=== PATIENT | female | born 1980 | race Caucasian/White ===

== ENCOUNTER → 2020-05-12 12:10 | Outpatient (CLI) | payer OTHER, SELFPAY ==
[2020-05-17 13:52] LABS: HPV Reflexed? NOT INDICATED
== END ==
PROVIDERS: PCP Family Medicine; Referring Provider Family Medicine; Visit Provider Family Medicine
DX: Z12.4 Encounter for screening for malignant neoplasm of cervix (principal)
CPT/HCPCS: 88175; G0145

== ENCOUNTER → 2020-05-26 07:45 | Outpatient (CLI) | payer OTHER, SELFPAY ==
--- NOTE | 2020-05-26 07:47 | BI_ITS ---
MAMMOGRAPHY - BILATERAL SCREENING 3-D TOMOSYNTHESIS REASON FOR EXAM: Female, 39 years old. Annual screening mammogram. PERTINENT HISTORY: No significant family history. TECHNIQUE: 2-D mammograms and 3-D Tomosynthesis of the breast (s) were performed. CAD was performed. COMPARISON: None. Baseline examination. FINDINGS: The breast composition is almost entirely fat. Scattered benign calcifications are seen. No dense spiculated masses or suspicious microcalcifications are identified. No architectural distortion is identified. There is no skin thickening or retraction. There has been no significant change since the prior study. BI/SCREEN MAMM (CAD) W/CHANTE BILAT IMPRESSION: No mammographic signs of malignancy. Routine yearly mammograms recommended. ASSESSMENT CATEGORY: BIRADS Category 2: Benign. A letter regarding these results will be sent to the patient by the facility within 30 days. FOLLOW UP RECOMMENDATION: Yearly follow up mammogram recommended. (A) Approximately 10% of breast cancers are not detected by mammography. A normal mammogram should not delay biopsy of a clinically suspicious abnormality. Electronically Signed: Donal Patrick MD at 15:43 EDT , Service support ,
== END ==
PROVIDERS: PCP Family Medicine; Referring Provider Family Medicine; Visit Provider Family Medicine
DX: Z12.31 Encounter for screening mammogram for malignant neoplasm of breast (principal)
CPT/HCPCS: 77063; 77067

== ENCOUNTER 2020-06-07 13:12 | Emergency (ER) | payer OTHER, SELFPAY ==
[2020-06-07 13:13] VITALS: BP 148/96; PULSE 88; RESP 16; TEMP 36.8; O2SAT 100; BMI 43.5
--- NOTE | 2020-06-07 14:22 | RAD_ITS ---
STUDY: X-RAY - LEFT KNEE REASON FOR EXAM: Female, 39 years old. pt. fell, pain TECHNIQUE: 4 view(s) of the knee. COMPARISON: None. FINDINGS: Normal visualized distal femur. Normal visualized proximal tibia and fibula. Normal proximal tibiofibular articulation. Normal medial femorotibial compartment. Normal lateral femorotibial compartment. Normal patellofemoral articulation. Tiny degenerative spur along the anterior superior aspect of the patella. The soft tissue structures are unremarkable. RAD/Knee 4 or More Views IMPRESSION: Normal x-ray examination of the knee. Electronically Signed: Reuben Gates, at 14:36 EDT , Service support ,
--- NOTE | 2020-06-07 14:28 | ED.DCSUM_ITS ---
- ER Visit Summary Date of Service: 06/07/20 Chief Complaint: Left knee pain History of Present Illness: The patient is a 39 F presenting with left knee pain. She states that she was working out, she bent over to clean off her mat and she tripped over the spray bottle. She fell twisting her left knee. She did not hit her head or lose consciousness. She tried ibuprofen prior to arrival. She complains of left knee pain. Denies other injuries. Physical Examination: Vitals are stable. Patient is afebrile. Alert no acute distress. HEENT exam is unremarkable. Neck is supple. Lungs are clear and equal bilaterally. Heart is regular rate and rhythm. Extremities diffuse tenderness left knee. Painful active full range of motion. Extensor mechanism intact. Normal distal pulses. Skin is warm and dry. No focal neurologic deficit. Remainder of exam is unremarkable. Emergency Department Course and Treatment: Patient declined pain medication. Left knee x-ray shows normal x-ray examination of the knee. She was given crutches. Advised to ice and elevate. She is given a prescription for [place]. Advised to follow-up with primary care physician. Advised return to ED for worsening complaints. Disposition: Discharge Impression: Left knee sprain This note was generated with [employer] dictation software. It may contain incorrect words, spelling, and punctuation that were not noted in review of the chart prior to signing ED Disposition - Plan for ED Patient: Instructions: ED Sprain Knee Prescriptions: Hydrocodone Bitart/Apap 5-325 [[place] 5MG-325MG] 1 tab PO Q6H PRN PRN 3 Days #10 tab PRN Reason: Pain Prescription Printed Referrals: Cindy Romero MD [Primary Care Provider] -
--- NOTE | 2020-06-07 14:57 | ED.DEP ---
ED Disposition - Plan for ED Patient: Instructions: ED Sprain Knee Prescriptions: Hydrocodone Bitart/Apap 5-325 [[place] 5MG-325MG] 1 tab PO Q6H PRN PRN 3 Days #10 tab PRN Reason: Pain Prescription Printed Referrals: Cindy Romero MD [Primary Care Provider] -
--- NOTE | 2020-06-07 18:58 | DCINST.ED_ITS ---
ED Disposition - Plan for ED Patient: Disposition: Home or Assisted Living Instructions: ED Sprain Knee Prescriptions: Hydrocodone Bitart/Apap 5-325 [[place] 5MG-325MG] 1 tab PO Q6H PRN PRN 3 Days #10 tab PRN Reason: Pain Prescription Printed Hydrocodone Bitart/Apap 5-325 [[place] 5MG-325MG] 1 tablet PO Q6H PRN PRN 3 Days #12 tablet PRN Reason: Pain Transmission Status: Received by MIKE [id number] [facility] Referrals: Cindy Romero MD [Primary Care Provider] -
--- NOTE | 2020-06-07 18:58 | ED.DEP ---
ED Disposition - Plan for ED Patient: Disposition: Home or Assisted Living Instructions: ED Sprain Knee Prescriptions: Hydrocodone Bitart/Apap 5-325 [[place] 5MG-325MG] 1 tab PO Q6H PRN PRN 3 Days #10 tab PRN Reason: Pain Prescription Printed Hydrocodone Bitart/Apap 5-325 [[place] 5MG-325MG] 1 tablet PO Q6H PRN PRN 3 Days #12 tablet PRN Reason: Pain Transmission Status: Received by MIKE [id number] [facility] Referrals: Cindy Romero MD [Primary Care Provider] -
== END 2020-06-07 15:44 | disposition home or self-care (01) ==
LOC: ED 14:41
PROVIDERS: Emergency Provider Emergency Medicine; PCP Family Medicine
DX: S83.92XA Sprain of unspecified site of left knee, initial encounter (principal); W19.XXXA Unspecified fall, initial encounter
CPT/HCPCS: 73564; 99283

== ENCOUNTER → 2020-07-06 09:08 | Outpatient (CLI) | payer OTHER, SELFPAY ==
[2020-06-07 13:13] VITALS: BMI 43.5
[2020-07-06 10:42] LABS: Anion Gap 5 (5-15); BUN 12 mg/dL (7-18); BUN/Creat Ratio 16.2 RATIO (10-20); Calcium,Total 9.1 mg/dL (8.5-10.1); Chloride 103 mmol/L (98-107); Cholesterol 232 mg/dL (200); Creatinine, Serum 0.74 mg/dL (0.55-1.02); EST Glomerular Filtration Rate 92 mL/min (>60); Est Glom Filt Rate - Afr Amer 111 mL/min (>60); Glucose 83 mg/dL (74-106); High Density Lipoprotein 68 mg/dL; Potassium 3.9 mmol/L (3.5-5.1); Sodium Level 136 mmol/L (136-145); Triglycerides 100 mg/dL; Very Low Density Lipoprotein 20 mg/dL (5-40)
[2020-07-06 10:47] LABS: Hemoglobin A1c 5.3 % (3.8-5.6)
== END ==
PROVIDERS: PCP Family Medicine; Referring Provider Family Medicine; Visit Provider Family Medicine
DX: I10 Essential (primary) hypertension (principal); Z13.220 Encounter for screening for lipoid disorders; Z13.1 Encounter for screening for diabetes mellitus
CPT/HCPCS: 36415; 80048; 80061; 83036

== ENCOUNTER → 2020-08-02 06:24 | Outpatient (CLI) | payer OTHER, SELFPAY ==
--- NOTE | 2020-08-02 06:25 | MRI_ITS ---
HISTORY: left knee instability, injury 2 mos ago, stiffness EXAMINATION: MR left Knee W/O Contrast TECHNIQUE: Multiplanar and multisequence MR images of the left knee. IV Contrast dosage and agent: None. COMPARISON: None FINDINGS: Ligaments: Complete tear of the ACL from the femoral attachment. Intact PCL and intact collateral ligaments. Menisci: Peripheral longitudinal tear of the posterior horn, medial meniscus. This tear extends to both the femoral and tibial articular surfaces. Intact lateral meniscus. Joints and cartilage: Osteoarthritis with patellofemoral partial-thickness cartilage loss, greater at the lateral patellar facet, and accompanied by subchondral mild marrow edema. Small joint effusion and small popliteal cyst measuring 2.5 cm in length. Associated mild fluid distention of the medial gastrocnemius bursa. Bones: No fracture or avascular necrosis. Subchondral mild marrow edema of the patella. Tendons: Normal quadriceps and patellar tendons. Soft tissues: Mild superficial edema, greatest at the prepatellar and infrapatellar regions MRI/Lower Ext Joint Only (Routine) IMPRESSION: 1. ACL complete tear together with peripheral tear of the posterior horn, medial meniscus. 2. Small joint effusion with small popliteal cyst formation. 3. Patellofemoral early osteoarthritis 4. Mild superficial edema, greatest at the prepatellar and infrapatellar regions. at 0827 Reported and signed by: Luis Vazquez MD Electronically Signed: Luis Vazquez, at 8:26 EDT Tel , Service support ,
== END ==
PROVIDERS: PCP Family Medicine; Referring Provider Orthopaedic Surgery; Visit Provider Orthopaedic Surgery
DX: S89.92XA Unspecified injury of left lower leg, initial encounter (principal); M25.362 Other instability, left knee
CPT/HCPCS: 73721

== ENCOUNTER 2020-08-25 08:58 | Day surgery (SDC) | payer OTHER, SELFPAY ==
[2020-08-25] VITALS (10 sets, daily range): BP systolic 134–150; BP diastolic 77–99; PULSE 78–101; RESP 16–18; TEMP 36.5–37.5; O2SAT 94–100; BMI 43.0
--- NOTE | 2020-08-25 05:13 | HP_ITS ---
I have re-examined the patient. There are no clinical changes since date of exam. Intake Intake Visit Reasons: MRI follow up Is patient in pain?: Yes Allergies No Known Allergies Allergy (Verified 08/05/20 08:55) Medications NK 07/27/20 [History Confirmed 08/05/20] PFSH Surgical History (Updated 07/27/20 @ 09:44 by Christi Rankin) Hx of section (Acute) Social History (Updated 08/05/20 @ 09:[address] Catalina Glover DO) Smoking Status: Former smoker HPI MRI follow up: Surgical H&P: Yes Details: Parts of this documentation were recorded by a scribe, this documentation accurately reflects the service provided and the decisions made by me, Dr. Catalina Glover DO 08/05/20 0850. SANDRINE ARANA is a 39 year old F here today for a followup after her left knee MRI. Patient states that she continues to have stiffness and decreased knee range of motion. She notes that her patella hurts if she has been standing for long times. Patient is ambulating with an antalgic gait. She has popping and clicking. She notes that she has swelling. Patient denies any pain medications. She will take aleve or IBU if needed. Her MRI is here for review. No calf pain. ROS [facility] Reports joint pain, Reports joint swelling Skin/Breast Reports system reviewed and no additional complaints, except as docu Neuro Yes system reviewed and no additional complaints, except as docu Ortho Exam Left Knee Skin/Wound: Yes CDI, No ecchymosis, No erythema, Yes swelling Homans Sign: No 1+: Effusion Examination: Yes med jt line tenderness, Yes Lat jt line tenderness, Yes Crepitus, Yes Pain with flexion, Yes Jackelyn's Test, No Dial at 90, No Dial at 60 Stability: NML: Posterior Drawer, NML: Valgus 0, NML: Valgus 30, NML: Varus 0, NML: Varus 30, 1+: Anterior Drawer, 1+: Leah KNEE: no calf pain. negative homans Assessment & Plan Problems 1. Complete tear of anterior cruciate ligament of left knee, subsequent encounter S83.512D 2. Tear of medial meniscus of left knee, current, unspecified tear type, subsequent encounter S83.242D 3. Tear of lateral meniscus of left knee, current, unspecified tear type, subsequent encounter S83.282D Plan Personally reviewed the patients left knee MRI which showed an ACL tear and medial and lateral meniscus tear. See imaging report in chart for further details. Spoke with the patient about the anatomy of the knee and etiology of her symptoms. Spoke with her about the benefits and risks of surgery. Explained she would be a candidate for meniscus repair and ACL reconstruction. If she does not proceed with surgery, she would be at increased risk of early onset OA. She wanted to proceed with surgery with an allograft. Spoke with her about the benefits of an ice machine. She will be put on lovenox/blood thinners post op due to decreased use of her leg over the last 2 months. She has a higher risk of arthrofibrosis due to the surgery procedure. If she has meniscus repairs, she will be toe touch weightbearing for 6 weeks. Reviewed the pre-operative plans with the patient. Risks and benefits of the procedure were fully explained, including but not limited to infection, neurovascular injury, continued pain, arthritis, stiffness, need for further surgery, re-injury, DVT, PE, general risks of anesthesia, and loss of limb or life. The patient understands all the risks and does wish to proceed with written consent. We discussed the current risk associated COVID-19. While it is understood that there is a community spread of COVID 19 the risk of juan COVID-19 while at [facility] is very low, however, the risk cannot be completely mitigated because of the community spread of the disease. We discussed in detail the risk of exposure to and or potential harm posed by the COVID-19 virus with having a surgery/procedure at this time versus the risk of delaying the surgery/procedure. Is not possible to know either the risk of delaying the surgery procedure or chance of getting an infection with perfect accuracy, but a joint decision was made to proceed at this time with a schedule surgery/procedure as indicated on the consent form. Patient was notified that we will need to comply with any screening or testing [facility] wishes to perform or that surgery may be delayed for any positive results. Follow up for 2 week post op or sooner if pain, swelling, numbness or associated symptoms, or concerns develop. All questions answered. Patient in agreement of plan. Coding Level of Care Code Off vis,est,level 4 Diagnoses Complete tear of anterior cruciate ligament of left knee, subsequent encounter S83.512D ??Encounter type: subsequent encounter Tear of medial meniscus of left knee, current, unspecified tear type, subsequent encounter S83.242D ??Encounter type: subsequent encounter ??Meniscus tear of knee type: unspecified type ??Tear current or old: current Tear of lateral meniscus of left knee, current, unspecified tear type, subsequent encounter S83.282D ??Encounter type: subsequent encounter ??Meniscus tear of knee type: unspecified type
[2020-08-25] MEDS: Lactated Ringers 1,000 ML 100 ML IV ×2 (09:36→15:08)
[2020-08-25] MEDS: Cefazolin 2 GM in 0.9% Normal Saline 100 ML IV (12:21)
[2020-08-25] MEDS: Epinephrine (1 mg/ml) 1 MG/ML VIAL (12:50)
[2020-08-25] MEDS: Mupirocin Ointment 22gm Tube 1 APPLIC (14:00)
--- NOTE | 2020-08-25 14:28 | OP.PCM_ITS ---
Report of Operation Date of Procedure: 08/25/20 Pre-Operative Diagnosis: left knee acl tear, med and lateral meniscus tears Post-Operative Diagnosis: same Surgery/Procedure Performed:: salk, acl reconstruction with allograft, med men repair, lateral mensicectomy supervisor coal handling: Luis Low Type of Anesthesia:: Spinal General Anesthesia Anesthesiologist: Chinmay Butler Estimated Blood Loss (mL): nmin Fluids Replaced: 1000ml lr Description of Procedure: Preop note Patient is a 39-year-old female who sustained an injury to her knee. She hyperextended had continued pain and inability to weight-bear for quite some time. She saw me in the office about 4 months after the incident. Noted that time to have stable exam from ACL as well as meniscus positive Jackelyn's both medial and lateral. MRI was ordered which confirmed ACL tear as well as as well as medial lateral meniscus tears. Risk benefits and alternative surgery discussed with patient. Risk include but not limited to blood loss, blood clot, infection, neurovascular, failure procedure, loss of life and loss of limb. Patient is aware of life proceed withleft knee arthroscopy repair as indicated. Operative note Patient seen and examined preoperative holding area. Left knee was marked. Patient brought to the operating placed supine the operating table. Signed, anesthesia, antibiotics were administered. The left leg was prepped and draped usual sterile technique with a tourniquet around her upper thigh. All bony prominences well-padded and SCDs placed on her light contralateral limb. Marked out our incision for anterior lateral anteromedial portal placement as well as our tibial and femoral tunnel placement. Left leg was then elevate exsanguinated tourniquet raised her pressure 250 torr. Timeout was performed. We then used an 11 blade to create her anterior lateral portal. Began our diagnostic arthroscopy we then moved to the medial joint line we created anterior medial portal and direct visualization. We then probed the very unstable medial meniscus posterior horn tear. There is numbness bucket-handle however it was not completely displaced because it did not extend too far to the mid body. It was at the verge of needing a meniscectomy which would have been almost a subtotal meniscectomy from the posterior horn down to the mid body however we attempted to we did repaired using 7 360 FasT-Fix reverse curve devices and in order to decrease her risk for arthritis in the future. However based on the location is a probably a 50-50 whether not this will heal. Please note that however prior to the repair we did rasp and abrade the edges to instill blood flow as well. We then moved to the ACL and PCL the PCL was in the notch the ACL was torn and scarred into the PCL. We then debrided back the unstable ACL and and performed a mini notchplasty. Then moved to the lateral joint line. She had a fraying of the posterior horn the lateral meniscus was gently debrided back with a shaver. We then used our allograft and standard technique prepared with Arthrex graft link on the back table. We measured it to be a 9-1/2 x 70. We then prepared again prepared the tunnel drilled our femoral tunnel with a flip meat cutter standard technique. We then irrigated the need to get any bony debris out. We then placed our tibial tunnel using standard technique. We were able to then irrigate with copious muscle sterile saline to getting bony debris of the joint as well. We then brought the graft on the back table brought through the medial portal through the femoral tunnel flipped the button on the femoral side and then did palpated to ensure that it was flipped on the lateral femoral cortex. We then brought the graft into the tunnel and then brought the graft down through the tibial tunnel in standard technique using the graft leg since then. We then cycled the graft about 20 times and to get any creep of the graft please note it was also placed on tension after it was prepared in the back table while we prepared and fix her medial meniscus. We then used the button and brought the button down to bone and oversewed the button down with the knee in extension full extension. Please note that prior to this we did bring the knee into full extension to make sure there was no anterior impingement on the notch which there was not. Then brought the graft little bit more into the femoral tunnel made a little bit more room. We visualized that we had good placement of her ACL. Please note that after the medial meniscus repair we did also go back and probed the medial meniscus with it was a stable meniscus repair. The knee was irrigated copious as a sterile saline. Tourniquet was deflated. All dressings were applied after the portals were closed in standard technique. Patient taught procedure well no complication child recovery room in stable condition. Postop note Toe-touch weightbearing for 6 weeks STANLEY stockings ankles pumps ice elevate Call with increased pain numbness tingling further issues arise Pharmacy has prescription We will get pictures in 2 weeks Laura disclaimer
--- NOTE | 2020-08-25 14:28 | PCM.DC.ORTHO ---
Discharge Diet: No Restrictions - Toe-touch weightbearing operative extremity, brace may be unlocked while seated 0 to 30 degrees, brace locked in extension during ambulation and at night, follow-up on Sunday for dressing change and brace adjustment with Christiano Wayt, may get incision wet after that time, call with increased pain numbn Discharge Activity: May Not Drive May shower in (days): 1 Ice area for (Minutes): 20 - Every hour while awake. Weight Bearing Status: Weight bearing as tolerated Keep extremity elevated above heart level: Operative Extremity Call your doctor if your incision/area has: Continuous Slow Oozing, Sudden Increased Bleeding, Increased Pain/ Swelling, Increased Redness, Foul Smelling Discharge Call your doctor if you observe: Fever of 101 or Higher, Coldness, Increased Pain, Numbness or Tingling, Change in Color, Calf discomfort Allergies/Adverse Reactions: Allergies No Known Allergies Allergy (Verified 08/25/20 09:18) Medications to take at Discharge Oxycodone [Oxyir] 5 mg PO Q4H PRN PRN 5 Days #60 tablet 08/25/20 The following prescriptions were given: Oxycodone [Oxyir] 5 mg PO Q4H PRN PRN 5 Days #60 tablet PRN Reason: Pain Transmission Status: Sent to [facility] Primary Care Physician: Cindy Romero MD [Primary Care Provider] - Test Results: Test results from this visit will be discussed in further detail at your follow-up appointment, if applicable. Please Follow Up With: Catalina Glover, - [phone]
[2020-08-25] MEDS: HYDROcodone Bitartrate/Apap 5/325 Tablet PO (18:11)
== END 2020-08-25 20:07 | disposition home or self-care (01) ==
LOC: SDC 08:58 → AC 08:59
PROVIDERS: PCP Family Medicine; Referring Provider Orthopaedic Surgery; Visit Provider Orthopaedic Surgery
PROC: (CPT 29888; principal; 2020-08-25 10:25)
DX: S83.512A Sprain of anterior cruciate ligament of left knee, initial encounter (principal); S83.242A Other tear of medial meniscus, current injury, left knee, initial encounter; X58.XXXA Exposure to other specified factors, initial encounter; Y93.9 Activity, unspecified; Y92.9 Unspecified place or not applicable; Y99.9 Unspecified external cause status; Z20.828 Contact with and (suspected) exposure to other viral communicable diseases; I10 Essential (primary) hypertension; Z87.891 Personal history of nicotine dependence
CPT/HCPCS: 01400; 29881; 29882; 29888; 87426; C9803; J7120; J2405

== ENCOUNTER → 2020-10-20 15:34 | Outpatient (CLI) | payer OTHER, SELFPAY ==
[2020-08-25 09:20] VITALS: BMI 43.0
--- NOTE | 2020-10-20 15:38 | VDLE_ITS ---
Reason For Study: Swelling Procedure LEFT Exam performed in department. GSV is normal. A preliminary report was called and/or faxed CFV is compressible, spontaneous, phasic, to Luis ABEBE. competent, and demonstrates normal augmentation. FV is compressible, spontaneous, phasic, competent and demonstrates normal augmentation. POP V is compressible, spontaneous, phasic, competent and demonstrates normal augmentation. T/P Trunk is compressible. PTV is compressible. LT PerV is compressible. Interpretation Summary There is no evidence of left lower extremity deep vein thrombosis. Left great saphenous vein appears patent and compressible segmentally. Ordering Physician: Luis Low Referring Physician: Cindy Romero Performed By: Renu Ramos, JERADCS, RVT
== END ==
PROVIDERS: PCP Family Medicine; Referring Provider Physician Assistant; Visit Provider Physician Assistant
DX: M25.562 Pain in left knee (principal); M79.89 Other specified soft tissue disorders; M79.662 Pain in left lower leg
CPT/HCPCS: 93971

== ENCOUNTER → 2020-12-02 12:17 | Outpatient (CLI) | payer OTHER, SELFPAY ==
[2020-12-02 14:00] LABS: Synovial Fld Polynuclear WBC # 0.078 10^3/uL
[2020-12-02 14:03] LABS: RBC /Synovial Fluid 0.012 10^6/uL (0)
[2020-12-02 14:05] LABS: AUTO B FLUID DILUENT BKGD CT WBC <0.1 RBC <0.01 (W<.1,R<.01); CRYSTALS, BODY FLUID See PATH REV
[2020-12-02 14:07] LABS: Appearance /Synovial Fluid Cloudy (CLEAR); Source / Synovial Fluid NOT INDICATED; Source- Body Fluid SYNOVIAL; Viscosity / Synovial Fluid Sl. Viscous (HIGH)
[2020-12-02 14:09] LABS: Body Fluid QC Type(s) BF1Q,BF2Q
[2020-12-02 14:57] LABS: Lymph 27 %; Monocyte /Synovial Fluid 44 %; Neutrophil 8 % (0-25); Other Cell /Synovial Fluid 21 %
[2020-12-03 13:51] LABS: Pathologist Comment Reviewed
[2020-12-03 17:05] LABS: GLUCOSE, SYNOVIAL FLUID 92 mg/dL (.)
== END ==
PROVIDERS: PCP Family Medicine; Referring Provider Orthopaedic Surgery; Visit Provider Orthopaedic Surgery
DX: Z98.890 Other specified postprocedural states (principal); M25.462 Effusion, left knee
CPT/HCPCS: 82945; 84157; 87070; 87075; 87205; 89050; 89051; 89060

== ENCOUNTER 2020-12-02 15:00 | Outpatient (RCR) | payer OTHER, SELFPAY ==
--- NOTE | 2020-09-13 17:31 | HP.PTEVAL_ITS ---
Patient's Visit Information SANDRINE ARANA is a 39 year old F referred to Physical Therapy by Dr. Catalina Glover DO with a diagnosis of 08/25/2020: Left ACL and meniscal repair. Date of Evaluation: 09/13/20 Physical Therapist: Keyanna Womack DPT - Visit Plan Frequency: 2x /Week Duration: 4 Weeks Plan: 08/25/2020: Left ACL and meniscal repair- TTWB 0-60 2 weeks 0-90 x 2 weeks- brace locked in extn for sleep and ambulation. - Subjective Fell after working out at the [facility]- contact injury- tore ACL and meniscus (Jun 07, 2020). August 25 Dr. Glover did an ACL repair and meniscal repair. Went home after surgery- lives with - he can help as needed- he works from home- has 11 and 8 year old kids that help to. Fully I- driving, dressing and bathing prior to injury. 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 Patient reports that her brace it set to 60 degrees. Worst: 3/10 Agg: bending reports that its throbbing. Best: 0/10 Eases: nothing at this point. Pain is located on the whole knee but does not radiate. Slight N/T in the incision area. Wearing the brace all the time. Sleeps: in the chair- tried her bed but it made her back hurt. Is not driving yet- due to the brace. PMHx/Meds: was given oxycodone which made her itch so she added it in as allergy- no other changes. - Objective Posture: FH, RS- can correct but does not maintain in sitting. Gait: standard walker- TTWB- unable to ambulate distances- back to PT in w/c. WB: not tested due to TTWB restriction ROM: 0-60 degrees with no pain at end range flexion. Strength: Quad set- visible but poor SLR: moderate lag- Ankle: 5/5 Knee: 3+/5 with gross testing Hip: 4/5 throughout Core: fair. Girth: Patella: 55.4 cm cm 6 above: 62.5. Flex: HS: mild, Gastroc: moderate. Observation: incision: healing well- steri strips still attatched Palpation: tender along medial and lateral joint line. Attempted stairs with walker and bilateral HR:unable - Goals Goal 1:: Patient will be I with HEP and progression Goal Time Frame: 4-6 Weeks Goal 2:: Patient will ambulate >300 feet with a normalized gait pattern (as per protocol) Goal Time Frame: 4-6 Weeks Goal 3:: Patient will demo equal girth bilateral 6 above patella Goal 4:: Patient will asc/desc 8 stairs recip ((as per protocol)) - Rehabilitation Potential Physical Therapy Diagnosis: Patient presents s/p 08/25/2020: Left ACL and meniscal repair- she has decreased ROM,strength, flex and muscular endurance leading to abnormal gait and increased pain with ADL's. Rehabilitation Potential: Fair - Anticipated Interventions Patient/Client Instruction: Educate patient on: Benefits of Fitness Program Therapeutic Exercise to Include: Strength training, Endurance training, Balance training, Agility training, Body mechanics, Postural training, Flexibilty training, Gait and locomotor training, Neuromotor development, Dynamic Lumbar Stabilization, Andrade Exercises, Scapular Strength/Stabilization For the Purpose of:: To improve muscle performance and motor function TENS: Yes Other electric stimulation: Yes Cryotherapy (ice pack, ice massage): Yes Thermo therapy (hot pack): Yes Ultrasound (thermal/non thermal): No Thank you for the opportunity to evaluate your patient. For Medicare and Medicare HMO plans, please review the plan of care and approve it. It will need to be FAXED BACK to us at [phone] for Medicare purposes. For Medicare only, by signing this I certify the plan of care. Please let me know if there are questions or concerns regarding this plan of care. Physician Signature: Date:
--- NOTE | 2020-10-11 17:09 | HP.PTREVAL_ITS ---
Dr. Catalina Glover, DO, It has been my pleasure to treat SANDRINE ARANA over the last 9 visits for 08/25/2020: Left ACL and meniscal repair. Please see the progress note below for an update on the physical therapy plan of care! Subjective: Patient reports that she is walking without crutches anymore. She is doing exercises and she is having to ice a little due to a little bit of swelling. She is back to sleeping in her bed- is not sleeping in the brace. Is doing exercises for flexion and extension. Worst: 5/10 more sore than anything else. Objective/Function: Posture: FH, RS- can correct but does not maintain in sitting. Gait: TROM brace locked in extension- no heel/toe- no AD. SLS: 3 sec then LOB HR/TR: able ROM: 0-85 degrees with no pain at end range flexion but reports stiff. Strength: SLR: no lag- Ankle: 5/5 Knee: 4+/5 with gross testing Hip: 4+/5 throughout Core: fair. Flex: HS: mild, Gastroc: moderate. Patellar Mobility: fair. Stairs: non recip with 1 HR Plan Plan: 08/25/2020: Left ACL and meniscal repair. TTWB, brace locked in extn for sleep and amb. 10/11/2020: WBAT- progress ROM Goals Goal 1:: Patient will be I with HEP and progression Goal Time Frame: 4-6 Weeks Goal Progress: Progressing Goal 2:: Patient will ambulate >300 feet with a normalized gait pattern (as per protocol) Goal Time Frame: 4-6 Weeks Goal Progress: Progressing Goal 3:: Patient will demo equal girth bilateral 6 above patella Goal 4:: Patient will asc/desc 8 stairs recip ((as per protocol)) Goal Progress: Progressing Anticipated Interventions Patient/Client Instruction: Educate patient on: Benefits of Fitness Program Therapeutic Exercise to Include: Strength training, Endurance training, Balance training, Agility training, Body mechanics, Postural training, Flexibilty training, Gait and locomotor training, Neuromotor development, Dynamic Lumbar Stabilization, Andrade Exercises, Scapular Strength/Stabilization For the Purpose of:: To improve muscle performance and motor function TENS: Yes Other electric stimulation: Yes Cryotherapy (ice pack, ice massage): Yes Thermo therapy (hot pack): Yes Ultrasound (thermal/non thermal): No Please do not hesitate to contact me at [phone] by phone or Fax: if you have questions or concerns regarding this new plan of care! Sincerely, CHRIS ArredondoT
--- NOTE | 2020-11-03 16:04 | HP.PTREVAL ---
Dr. Catalina Glover, DO, It has been my pleasure to treat SANDRINE ARANA over the last 16 visits for 08/25/2020: Left ACL and meniscal repair. Please see the progress note below for an update on the physical therapy plan of care! Subjective: Pt reports having up and down days, some days better than others. She had a dopplar last week to rule out blood clot- it was negative- is now wearing a compression stocking. Objective/Function: Posture: FH, RS- can correct but does not maintain in sitting. Gait: antalgic, decreased stance time on affected side SLS: 3 sec then LOB HR/TR: able ROM: 105-4 degrees PROM: flexion 109 Strength: SLR: no lag- Strength: R flex: 14.4,21.8,23.3 L flex: 17.1,18.6,20.1 R ext 25.3,29.3,29.8 L ext 15.9,198,22.3 Flex: HS: mild, Gastroc: moderate. Stairs: recip with 1 HR but decreased speed. poor eccentric control desceasing with increase in pain. Plan Plan: Pt to contine 2x a week for 4 weeks with PT interventions in order to increase strength, ROM, balance, flexibilty and improve functional mobilty Goals Goal 1:: Patient will be I with HEP and progression Goal Time Frame: 4-6 Weeks Goal Progress: Progressing Goal 2:: Patient will ambulate >300 feet with a normalized gait pattern (as per protocol) Goal Time Frame: 4-6 Weeks Goal Progress: Progressing Goal 3:: Patient will demo equal girth bilateral 6 above patella Goal Progress: Progressing Goal 4:: Patient will asc/desc 8 stairs recip ((as per protocol)) Goal Progress: Progressing Anticipated Interventions Patient/Client Instruction: Educate patient on: Benefits of Fitness Program Therapeutic Exercise to Include: Strength training, Endurance training, Balance training, Agility training, Body mechanics, Postural training, Flexibilty training, Gait and locomotor training, Neuromotor development, Dynamic Lumbar Stabilization, Andrade Exercises, Scapular Strength/Stabilization For the Purpose of:: To improve muscle performance and motor function TENS: Yes Other electric stimulation: Yes Cryotherapy (ice pack, ice massage): Yes Thermo therapy (hot pack): Yes Ultrasound (thermal/non thermal): No Please do not hesitate to contact me at [phone] by phone or if you have questions or concerns regarding this new plan of care! Sincerely, CHRIS ArredondoT
--- NOTE | 2020-12-02 18:15 | HP.PTDCSUM ---
It has been my pleasure to treat SANDRINE ARANA referred by Dr. Catalina Glover DO, with the diagnosis of 08/25/2020: Left ACL and meniscal repair for a total of 23 visit(s). Discharge Date: 12/02/20 Please see the following information for a summary of their discharge status. Subjective: Pt had fluid drained today and gave streiod injections and reports that it feels so much better. Pt reported prior to injection was in more discomfort. Pt reports she wants to improve ROM, tightness, swelling but wants to try I HEP. left knee Pain Intensity (Out of 10): 0 % Improvement: 80 Objective/Function: Posture: FH, RS- can correct but does not maintain in sitting. Gait: slightly antalgic SLS: 3 sec then LOB HR/TR: able ROM: 115-0 degrees Strength: SLR: no lag Strength: hip: 4+/5 in all planes, knee: flex 4+/5 ext 4/5 , ankle: DF/PF 4+/5 Flex: HS: mild, Gastroc: mild. Stairs: recip with 1 HR with slight increase in discomfort descending, no pain Goal 1:: Patient will be I with HEP and progression Goal Progress: Goal Met Goal 2:: Patient will ambulate >300 feet with a normalized gait pattern (as per protocol) Goal Progress: Progressing Goal 3:: Patient will demo equal girth bilateral 6 above patella Goal Progress: Progressing Goal 4:: Patient will asc/desc 8 stairs recip ((as per protocol)) Goal Progress: Goal Met Plan: Pt to d/c with I HEP and encouraged to contact with questions and concerns. If there are questions or concerns regarding this patient's physical therapy, please feel free to call me at [phone]. Thank you for the referral of this patient. Sincerely, Hilton Rich, DPT, OCS, CSCS
== END 2020-12-02 19:00 | disposition home or self-care (01) ==
LOC: PT 15:00
PROVIDERS: PCP Family Medicine; Referring Provider Orthopaedic Surgery; Visit Provider Orthopaedic Surgery
DX: Z98.890 Other specified postprocedural states (principal)
CPT/HCPCS: 97110; 97162; 97164; 97530

== ENCOUNTER → 2021-01-05 16:54 | Outpatient (CLI) | payer OTHER, SELFPAY ==
[2021-01-05 17:48] LABS: Absolute Lymphocyte Count 1.95 X10^3/uL (0.83-4.51); Absolute Neutrophil Count 6.4 X10^3/uL (2.0-7.7); Basophil# 0.04 X10^3/uL; Basophil% 0.4 % (0-1); Eosinophil# 0.19 X10^3/uL; Hematocrit 43.6 % (37-47); Hemoglobin 13.3 g/dL (12.0-15.0); Lymphocyte # 1.95 X10^3/ul (4.0); Mean Corp Hgb Conc 30.5 g/dL (32-36); Mean Corpuscular Hgb 28.1 pg (27.0-32.0); Mean Platelet Vol. 10.3 fl (6.2-12.0); Monocyte# 0.68 X10^3/uL; Monocyte% 7.3 % (0-10); NRBC Flagged by Analyzer 0 % (0-5); Neutrophil # 6.37 X10^3/uL (2.7-7.7); Neutrophil % 68.9 % (47-70); Platelet Count 398 K/mm3 (150-450); RBC Distribution Width CV 14.4 % (11.6-14.6); RBC Distribution Width SD 48.8 fl (35.1-43.9); Red Blood Count 4.74 M/mm3 (4.2-5.4); White Blood Count 9.3 K/mm3 (4.4-11.0)
[2021-01-05 18:14] LABS: Thyroid Stim Hormone (TSH) 1.93 uIU/mL (0.358-3.74)
== END ==
PROVIDERS: PCP Family Medicine; Referring Provider Family Medicine; Visit Provider Family Medicine
DX: N92.1 Excessive and frequent menstruation with irregular cycle (principal)
CPT/HCPCS: 36415; 84443; 85025

== ENCOUNTER → 2021-08-09 14:54 | Outpatient (CLI) | payer OTHER, SELFPAY ==
[2021-08-09 17:48] LABS: Absolute Lymphocyte Count 1.65 X10^3/uL (0.83-4.51); Absolute Neutrophil Count 6.5 X10^3/uL (2.0-7.7); Basophil# 0.06 X10^3/uL; Basophil% 0.7 % (0-1); Eosinophil# 0.12 X10^3/uL; Eosinophils% 1.4 % (0-5); Hematocrit 43.8 % (37-47); Hemoglobin 13.8 g/dL (12.0-15.0); Lymphocyte # 1.65 X10^3/ul (0.83-4.51); Lymphocyte % 18.8 % (19-41); Mean Corp Hgb Conc 31.5 g/dL (32-36); Mean Corpuscular Hgb 27.8 pg (27.0-32.0); Mean Corpuscular Volume 88.1 fL (81-99); Mean Platelet Vol. 10.2 fl (6.2-12.0); Monocyte% 4.6 % (0-10); NRBC Flagged by Analyzer 0 % (0-5); Platelet Count 459 K/mm3 (150-450); RBC Distribution Width SD 42.1 fl (35.1-43.9); Red Blood Count 4.97 M/mm3 (4.2-5.4); White Blood Count 8.8 K/mm3 (4.4-11.0)
[2021-08-09 18:08] LABS: Thyroid Stim Hormone (TSH) 1.57 uIU/mL (0.358-3.74)
[2021-08-18 14:52] LABS: Androstenedione 83 ng/dL (41-262)
== END ==
PROVIDERS: PCP Family Medicine; Referring Provider Family Medicine; Visit Provider Family Medicine
DX: L65.9 Nonscarring hair loss, unspecified (principal)
CPT/HCPCS: 36415; 82157; 82627; 84443; 85025; 82626

== ENCOUNTER 2021-12-16 12:06 | Outpatient (CLI) | payer OTHER, SELFPAY ==
[2021-12-16 15:34] LABS: AST(SGOT) 15 U/L (15-37); Alanine Aminotransfer ALT/SGPT 19 U/L (13-56); Albumin, Serum 3.6 g/dL (3.2-5.0); Alkaline Phosphatase 119 U/L (45-117); Anion Gap 4 (5-15); BUN 11 mg/dL (7-18); BUN/Creat Ratio 14.1 RATIO (10-20); Calcium,Total 9.5 mg/dL (8.5-10.1); Chloride 106 mmol/L (98-107); Creatinine, Serum 0.78 mg/dL (0.55-1.02); EST Glomerular Filtration Rate 86 mL/min (>60); Est Glom Filt Rate - Afr Amer 104 mL/min (>60); Globulin 3.7 g/dL (2.2-4.2); Glucose 91 mg/dL (74-106); Potassium 4.6 mmol/L (3.5-5.1); Protein, Total 7.3 g/dL (6.4-8.2); Sodium Level 139 mmol/L (136-145)
== END 2021-12-16 23:59 | disposition home or self-care (01) ==
LOC: MFPLAB 12:07
PROVIDERS: PCP Family Medicine; Referring Provider Family Medicine; Visit Provider Family Medicine
DX: R42 Dizziness and giddiness (principal)
CPT/HCPCS: 36415; 80053

== ENCOUNTER 2021-12-28 08:56 | Outpatient (CLI) | payer OTHER, SELFPAY ==
--- NOTE | 2021-12-28 09:03 | CDU_ITS ---
Reason For Study: Left carotid bruit Rt. Velocities/BP Lt. Velocities/BP Prox CCA 126.6/26.1 cm/sec. Prox CCA 112/24.3 cm/sec. Mid CCA 117.4/24.3 cm/sec. Mid CCA 108.3/27.9 cm/sec. Dist CCA 80.9/22.5 cm/sec. Dist CCA 84.6/26.1 cm/sec. Prox ICA 88.2/22.5 cm/sec. Prox ICA 70/20.6 cm/sec. Mid ICA 64.2/24.9 cm/sec. Mid ICA 61.8/22.5 cm/sec. Dist ICA 77.8/29.8 cm/sec. Dist ICA 70.4/26.2 cm/sec. Rt. ICA/CCA = 0.75. Lt. ICA/CCA = 0.65. Prox ECA 115.6/18.8 cm/sec. Prox ECA 93.7/15.2 cm/sec. Rt. Vert. 60.5/16.3 cm/sec. Lt. Vert. 37.7/13.5 cm/sec. Right Extracranial There is intimal thickening but no significant atherosclerotic plaque noted in the right common carotid artery. There is intimal thickening but no significant atherosclerotic plaque noted in the right internal carotid artery. There is intimal thickening but no significant atherosclerotic plaque noted in the right external carotid artery. Antegrade flow is noted in the right vertebral artery. Left Extracranial There is intimal thickening but no significant atherosclerotic plaque noted in the left common carotid artery. There is intimal thickening but no significant atherosclerotic plaque noted in the left internal carotid artery. There is intimal thickening but no significant atherosclerotic plaque noted in the left external carotid artery. Antegrade flow is noted in the left vertebral artery. Procedure Carotid Duplex [id number]. This is a Carotid Duplex examination using B-mode, color flow and specral Doppler. Exam performed in department. VL/Carotid Duplex Ultrasound Interpretation Summary No significant atherosclerotic plaque or stenosis noted in the internal carotid arteries bilaterally. Flow within the vertebral arteries is antegrade bilaterally. Ordering Physician: Cindy Romero Referring Physician: Cindy Romero Performed By: Talia Ha RVT
== END 2021-12-28 23:59 | disposition home or self-care (01) ==
LOC: CVS 09:01
PROVIDERS: PCP Family Medicine; Referring Provider Family Medicine; Visit Provider Family Medicine
DX: R09.89 Other specified symptoms and signs involving the circulatory and respiratory systems (principal)
CPT/HCPCS: 93880

== ENCOUNTER → 2023-02-14 | Outpatient (CLI) | payer OTHER, SELFPAY ==
[2023-02-22 14:09] LABS: HPV APTIMA, High Risk Negative (Negative)
[2023-02-22 21:17] LABS: HPV Reflexed? YES, CHARGE PATIENT
== END | disposition home or self-care (01) ==
PROVIDERS: PCP Family Medicine; Visit Provider Family Medicine
DX: Z12.4 Encounter for screening for malignant neoplasm of cervix (principal)
CPT/HCPCS: 87624; 88175; G0145

== ENCOUNTER → 2023-03-02 | Outpatient (CLI) | payer OTHER, SELFPAY ==
--- NOTE | 2023-03-02 10:58 | BI_ITS ---
MAMMOGRAPHY - BILATERAL SCREENING REASON FOR EXAM: Female, 42 years old. Routine annual screening examination. PERTINENT HISTORY: Non-contributory. TECHNIQUE: Digital bilateral breast chante (3D mammographic acquisition) in the CC and MLO projections. 2-D mediolateral oblique (MLO) and craniocaudad (CC) views of both breasts were obtained. CAD: Full Field Digital Mammography with Computer Added Detection was performed. COMPARISON: Comparison is made with prior examination dated May 26, 2020. FINDINGS: Breast Composition: The breasts are almost entirely fatty. There are no dominant masses or suspicious calcifications. Stable decreased size of the right breast. No other significant abnormalities are identified. There has been no significant change since the prior study. BI/SCRN MAMM (CAD)W/CHANTE BILAT IMPRESSION: Stable bilateral screening mammogram. Yearly follow-up mammogram recommended. (A) ASSESSMENT CATEGORY: BIRADS Category 2: Benign. A letter regarding these results will be sent to the patient by the facility within 30 days. Approximately 10% of breast cancers are not detected by mammography. A normal mammogram should not delay biopsy of a clinically suspicious abnormality. [id number] Electronically Signed: Reuben Gates MD at 12:43 EDT ,
== END | disposition home or self-care (01) ==
LOC: OPBI 10:56
PROVIDERS: PCP Family Medicine; Referring Provider Family Medicine; Visit Provider Family Medicine
DX: Z12.31 Encounter for screening mammogram for malignant neoplasm of breast (principal)
CPT/HCPCS: 77063; 77067

== ENCOUNTER → 2023-03-16 | Outpatient (CLI) | payer OTHER, SELFPAY ==
[2023-03-16 18:06] LABS: Absolute Lymphocyte Count 2.14 X10^3/uL (0.83-4.51); Basophil# 0.06 X10^3/uL; Basophil% 0.6 % (0-1); Eosinophil# 0.15 X10^3/uL; Eosinophils% 1.5 % (0-5); Hematocrit 40.8 % (37-47); Hemoglobin 12.8 g/dL (12.0-15.0); Lymphocyte # 2.14 X10^3/ul (0.83-4.51); Mean Corp Hgb Conc 31.4 g/dL (32-36); Mean Corpuscular Hgb 29.5 pg (27.0-32.0); Mean Platelet Vol. 10.2 fl (6.2-12.0); Monocyte# 0.77 X10^3/uL; Monocyte% 7.5 % (0-10); NRBC Flagged by Analyzer 0 % (0-5); Neutrophil # 7.02 X10^3/uL (2.7-7.7); Neutrophil % 68.7 % (47-70); Platelet Count 400 K/mm3 (150-450); RBC Distribution Width CV 15.4 % (11.6-14.6); RBC Distribution Width SD 52.4 fl (35.1-43.9); Red Blood Count 4.34 M/mm3 (4.2-5.4); White Blood Count 10.2 K/mm3 (4.4-11.0)
[2023-03-16 18:24] LABS: AST(SGOT) 34 U/L (15-37); Alanine Aminotransfer ALT/SGPT 28 U/L (13-56); Albumin, Serum 3.6 g/dL (3.2-5.0); Alkaline Phosphatase 103 U/L (45-117); Anion Gap 7 (5-15); BUN 16 mg/dL (7-18); BUN/Creat Ratio 21.4 RATIO (10-20); Chloride 109 mmol/L (98-107); Cholesterol 218 mg/dL (200); Creatinine, Serum 0.75 mg/dL (0.55-1.02); EST Glomerular Filtration Rate 90 mL/min (>60); Est Glom Filt Rate - Afr Amer 109 mL/min (>60); Globulin 3.6 g/dL (2.2-4.2); Glucose 82 mg/dL (74-106); High Density Lipoprotein 63 mg/dL; Potassium 4.1 mmol/L (3.5-5.1); Protein, Total 7.2 g/dL (6.4-8.2); Sodium Level 141 mmol/L (136-145); Triglycerides 100 mg/dL; Very Low Density Lipoprotein 20 mg/dL (5-40)
[2023-03-16 18:25] LABS: Vitamin D,25 Hydroxy 30.2 ng/mL
== END | disposition home or self-care (01) ==
LOC: MFPLAB 16:15
PROVIDERS: PCP Family Medicine; Visit Provider Family Medicine
DX: R53.83 Other fatigue (principal)
CPT/HCPCS: 36415; 80053; 80061; 82306; 85025

== ENCOUNTER → 2023-04-03 | Outpatient (CLI) | payer OTHER, SELFPAY ==
[2023-04-03 18:59] LABS: Thyroid Stim Hormone (TSH) 1.38 uIU/mL (0.358-3.74)
== END | disposition home or self-care (01) ==
LOC: MFPLAB 16:05
PROVIDERS: PCP Family Medicine; Visit Provider Family Medicine
DX: R53.83 Other fatigue (principal)
CPT/HCPCS: 36415; 84443

== ENCOUNTER 2024-10-09 15:05 | Emergency (ER) | payer OTHER, SELFPAY ==
[2024-10-09] VITALS (7 sets, daily range): BP systolic 141–167; BP diastolic 74–112; PULSE 87–104; RESP 16–21; TEMP 36.4–36.5; O2SAT 96–100; BMI 48.0
--- NOTE | 2024-10-09 15:07 | EKG12_ITS ---
Test Reason : CHEST PAIN Blood Pressure : */* mmHG Vent. Rate : 97 BPM Atrial Rate : 97 BPM P-R Int : 146 ms QRS Dur : 82 ms QT Int : 344 ms P-R-T Axes : 61 36 15 degrees QTcB Int : 436 ms Normal sinus rhythm Normal ECG Confirmed by SHOSHANA MCCAULEY, ISABELL ([id number]), deputy editor in chief NIDHI HINOJOSA ([id number]) on 10/10/2024 8:25:08 AM Referred By: Confirmed By: ISABELL ANNA MD
[2024-10-09 15:48] LABS: Absolute Lymphocyte Count 2.09 X10^3/uL (0.83-4.51); Absolute Neutrophil Count 8.1 X10^3/uL (2.0-7.7); Basophil# 0.08 X10^3/uL; Basophil% 0.7 % (0-1); Eosinophil# 0.16 X10^3/uL; Eosinophils% 1.4 % (0-5); Hematocrit 40.7 % (37-47); Lymphocyte # 2.09 X10^3/ul (0.83-4.51); Lymphocyte % 18.6 % (19-41); Mean Corp Hgb Conc 31.9 g/dL (32-36); Mean Corpuscular Hgb 28.3 pg (27.0-32.0); Mean Corpuscular Volume 88.7 fL (81-99); Mean Platelet Vol. 9.5 fl (6.2-12.0); Monocyte# 0.76 X10^3/uL; Monocyte% 6.7 % (0-10); NRBC Flagged by Analyzer 0 % (0-5); Neutrophil # 8.13 X10^3/uL (2.7-7.7); Neutrophil % 72.2 % (47-70); Platelet Count 357 K/mm3 (150-450); RBC Distribution Width CV 13.2 % (11.6-14.6); RBC Distribution Width SD 42.9 fl (35.1-43.9); Red Blood Count 4.59 M/mm3 (4.2-5.4); White Blood Count 11.3 K/mm3 (4.4-11.0)
[2024-10-09 16:16] LABS: Anion Gap 6 (5-15); BUN 12 mg/dL (7-18); BUN/Creat Ratio 10.3 RATIO (10-20); Calcium,Total 9.1 mg/dL (8.5-10.1); Chloride 103 mmol/L (98-107); Creatinine, Serum 1.17 mg/dL (0.55-1.02); EST Glomerular Filtration Rate 53 mL/min (>60); Est Glom Filt Rate - Afr Amer 64 mL/min (>60); Estimated Creatinine Clearance 75.26 ml/min; Glucose 101 mg/dL (74-106); Potassium 3.9 mmol/L (3.5-5.1); Sodium Level 137 mmol/L (136-145); Troponin-I HS (w/2H Reflex) 4 pg/mL (3.0-54.0)
--- NOTE | 2024-10-09 16:27 | RAD_ITS ---
STUDY: X-RAY CHEST REASON FOR EXAM: Female, 43 years old. chest pain TECHNIQUE: AP portable COMPARISON: None. FINDINGS: The lungs are clear and expanded. There is no demonstrated pleural abnormality. Normal size heart. Normal mediastinum and markus. Normal visualized pulmonary arteries. Normal visualized aortic arch and descending thoracic aorta. AICD noted on the left with electrode in right ventricle Normal visualized thoracic spine. Normal visualized ribs, clavicles, and shoulders. There is no demonstrated abnormality of the visualized soft tissue structures of the upper abdomen. RAD/Chest 1 View (Portable) IMPRESSION: No acute cardiopulmonary pathology with indwelling AICD. Electronically Signed: Omer Dao MD at 16:45 EST ,
[2024-10-09 17:07] LABS: D-Dimer Quantitative (DVT/PE) 0.33 FEU/ug/m (0.27-0.49)
[2024-10-09 17:41] LABS: Reflex Troponin-HS? (from REC) Y
--- NOTE | 2024-10-09 17:44 | EDS_ITS ---
HPI History of Present Illness Chief Complaint: Chest Pain Informant: patient Narrative Narrative: Patient is a 43-year-old female with history of epilepsy and pacemaker (patient was having inpatient monitoring for her epilepsy and was found to have a 23- second sinus pause). She is presenting today with a left-sided chest pain. She is a started just before lunch today and described as sharp.'s in the center of her chest. She also notes she has this weird feeling in her left arm but has been going on for the bit longer. That is worse with movement and if she raises her hand above her head. She notes that she did recently have a cold but is been feeling better from that standpoint. Denies any cough currently and previously had a mild cough. She denies any fever chills, nausea or vomiting. Denies any lightheadedness or dizziness. Denies any shortness of breath or difficulty breathing. Does not take any blood thinners. Denies any leg swelling, history of DVT or PE. No other complaints or concerns reported at this time. [facility] Medical History Epilepsy Home Medications ?Medication ?Instructions ?Recorded ?Last Taken ?Type oxcarbazepine 150 mg tablet 450 mg PO BID 10/09/24 Unknown History Allergy/AdvReac Type Severity Reaction Status Date / Time oxycodone Allergy Intermediate Itching, Verified 10/09/24 15:05 Shakiness Surgical History Hx of section Social History household members: spouse and family current occupational status: employed Smoking Status: Never smoker ROS ROS ED Constitutional Constitutional ED: Denies chills or fever(s) ENT ENT ED: Denies ear pain, rhinorrhea or sore throat Cardiovascular Cardiovascular: Reports as per HPI and chest pain Respiratory/Chest Respiratory/Chest: Denies cough, dyspnea or dyspnea on exertion Gastrointestinal Gastrointestinal: Denies abdominal pain, nausea or vomiting Musculoskeletal Musculoskeletal: Reports other Details: left shoulder pain ; Denies back pain or myalgias Integumentary Denies rash Neurologic Neurologic: Denies headache(s) or weakness Hematologic/Lymphatic Hematologic/Lymphatic: Denies easy bleeding or easy bruising EXAM Physical Exam Const Vital Signs: 10/09/24 15:05 10/09/24 15:27 10/09/24 15:27 Temperature 97.5 F L Temperature Source Temporal Pulse Rate 104 H Respiratory Rate 20 H Respiratory Effort Normal Non-Labored Blood Pressure 156/112 H Blood Pressure Mean 126 Pulse Ox 97 96 Oxygen Delivery Method Room Air Room Air 10/09/24 16:47 10/09/24 17:00 10/09/24 18:00 Temperature Temperature Source Pulse Rate 101 H 91 89 Respiratory Rate 18 17 16 Respiratory Effort Blood Pressure 167/88 H 144/74 H 142/89 H Blood Pressure Mean 114 97 106 Pulse Ox 98 98 100 Oxygen Delivery Method Room Air 10/09/24 19:00 10/09/24 20:39 Temperature 97.7 F L Temperature Source Pulse Rate 91 87 Respiratory Rate 21 H 18 Respiratory Effort Blood Pressure 141/85 H 143/81 H Blood Pressure Mean 103 101 Pulse Ox 97 100 Oxygen Delivery Method Room Air Positive well nourished and well developed General Appearance ED: well developed and NAD HEENT Reports moist mucous membranes Eyes PERRL Neck supple and no JVD Chest Wall inspection of chest normal and palpation of chest normal Chest Narrative: No tenderness palpation over pacemaker pocket of the left anterior chest. No overlying skin changes. Resp normal respiratory effort and clear to auscultation bilaterally Cardio regular rhythm Rate: tachycardic Peripheral Pulses: pulses 2+ throughout GI normal to inspection, nondistended, normoactive bowel sounds and soft to palpation Extremity normal to inspection Neuro oriented x3 Sensorium / Orientation: awake and alert Motor Exam: Negative for general weakness Psych mental status grossly normal Skin no rashes or lesions noted and no wounds Heart Score History: Slightly/Non-Suspicious ECG: Normal Age: </= 45 years Risk Factors: 1 or 2 Risk Factors Troponin: </= Normal Limit Score: 1 MDM MDM MDM Narrative Medical decision making narrative: Patient evaluated for sharp chest pain over the left side of her chest that has been intermittent. She did have a recent cold that has been improving. Blood pressure is mildly elevated at work as well. Differential includes muscle skeletal pain, prodrome of shingles, pneumothorax, pleurisy, ACS, PE and pneumonia. Patient does have a pacemaker in differential also includes pacemaker malfunction. Workup shows a mild leukocytosis 11.3 which is nonspecific. She is normal hemoglobin and platelets. BMP normal. Creatinine mildly elevated 1.17 however her baseline appears to be 0.75 do not of any labs from the past 18 months. D-dimer is normal. Patient is low risk per Wells criteria. Do not think CTA is indicated. Chest x-ray viewed by myself as well as radiology does not show any acute process. Pacemaker is interrogated which shows no acute events. Consult was positive. This likely the cause of the patient's recent cold. Patient was mildly tachycardic on arrival and expect she has some mild dehydration. Will be counseled to push fluids. Is given return precautions. At this time will be discharged home. Discussed that the exact cause of her chest pain is not clear but I do not think there is a more critical/emergent cardial pulmonary process going on. She verbalized agreement to this plan. Instructed to use Tylenol as needed for discomfort. Lab Data Attestation: I reviewed the patient's lab results. Labs: Laboratory Results - last 24 hr 10/09/24 10/09/24 15:38 18:10 WBC 11.3 H RBC 4.59 Hgb 13.0 Hct 40.7 MCV 88.7 MCH 28.3 MCHC 31.9 L RDW Std Deviation 42.9 RDW Coeff of Susana 13.2 Plt Count 357 MPV 9.5 Immature Gran % (Auto) 0.400 Neut % (Auto) 72.2 H Lymph % (Auto) 18.6 L Ste[place] % (Auto) 6.7 Eos % (Auto) 1.4 Baso % (Auto) 0.7 Absolute Neuts (auto) 8.1 H Absolute Lymphs (auto) 2.09 Nucleated RBC % 0 D-Dimer Quant (PE/DVT) 0.33 Sodium 137 Potassium 3.9 Chloride 103 Carbon Dioxide 28.0 Anion Gap 6 BUN 12 Creatinine 1.17 H Estim Creat Clear Calc 75.26 Est GFR (MDRD) Af Amer 64 Est GFR (MDRD) Non-Af 53 L BUN/Creatinine Ratio 10.3 Glucose 101 Calcium 9.1 Troponin I High Sens 4 4 Radiography Diagnostic Testing: Clinical Impression(s) from Imaging Studies Chest X-Ray 10/09/24 16:27 IMPRESSION: No acute cardiopulmonary pathology with indwelling AICD. Electronically Signed: Omer Dao MD at 16:45 EST , Rhythm Strip Rhythm Strip: Sinus Rhythm Rate: 97 Ectopy: None EKG Initial EKG: Attestation: I personally reviewed and interpreted this EKG as follows: Interpretation: Sinus Rhythm Comments: Normal sinus rhythm rate of 97 bpm Normal axis Normal intervals Normal ST segments Prior EKG tracings: available for review Prior: Unchanged Discharge Plan Triage Chief Complaint: Chest Pain ED Provider: Jaquelin Zuluaga Dx/Rx/DC Orders Clinical Impression: Left-sided chest pain, COVID-19 Instructions: ED Chest Pain, Uncertain Cause Prescriptions: No Action oxcarbazepine 150 mg tablet 450 mg PO BID Primary Care Provider: Cindy Romero Referrals: Cindy Romero MD [Primary Care Provider] - Activity Restrictions/Additional Instructions: Please push fluids over the next day or 2. He did test positive for COVID which likely cause of your recent cold. I do not think it is particularly associated with your acute chest pain today. Your cardiac workup was normal and reassuring. The exact cause of your symptoms is not clear at this time I think it safe you to be discharged home and follow-up with your primary care doctor. Please return if you have a progression or worsening of your symptoms or further concerns. Apply heat to the chest and use Tylenol as needed. Print Language: Colombian Disposition Disposition: Home, Self Care Discharge Date/Time: 10/09/24 20:40
[2024-10-09 19:24] LABS: Troponin-I HS 4 pg/mL (3.0-54.0)
== END 2024-10-09 20:40 | disposition home or self-care (01) ==
PROVIDERS: Emergency Provider Emergency Medicine; PCP Family Medicine; Visit Provider Emergency Medicine
DX: U07.1 COVID-19 (principal); G40.909 Epilepsy, unspecified, not intractable, without status epilepticus; R07.9 Chest pain, unspecified; E86.0 Dehydration; Z95.0 Presence of cardiac pacemaker; Z79.899 Other long term (current) drug therapy
CPT/HCPCS: 71045; 80048; 84484; 85025; 85379; 87631; 93005; 99284; A4216